=== PATIENT | male | born 1965 | race Caucasian/White ===

== ENCOUNTER 2023-02-14 13:30 | Emergency (ER) | payer MEDICAID ==
[~2023-02-14] VITALS: Ht 172.7 cm; Wt 90.3 kg
[2023-02-14 14:04] VITALS: BP 136/93
--- NOTE | 2023-02-14 14:07 | NUR ---
LOW BACK PAIN (07/27) X 2 DAYS, DENIES FALL, DENIES INJURY. PATIENT WITH UNSTEADY GAIT D/T PAIN. DENIES PMH.
--- NOTE | 2023-02-14 14:08 | NUR ---
TOOK IBUPROFEN 3 HOURS AGO.
[2023-02-14] MEDS ORDERED: KETOROLAC 30 MG/ML VIAL IM ONE (14:35)
--- NOTE | 2023-02-14 14:44 | NUR ---
pt wheelchair assist to xray at this time
--- NOTE | 2023-02-14 15:00 | NUR ---
PATIENT WAS WHEELCHAIR ASSISTED TO BED 12.
[2023-02-14] MEDS ORDERED: CYCL-711 PO (15:42)
[2023-02-14] MEDS ORDERED: NAPR-1704 PO (15:42)
[2023-02-14] MEDS ORDERED: LID5T TP (15:42)
[2023-02-14 16:13] VITALS: BP 145/90
--- NOTE | 2023-02-14 16:15 | NUR ---
Patient discharged with v/s stable. Written and verbal after care instructions BACK PAIN RADICULAR PAIN, DEGENERATIVE DISK DISEASE given and explained. Patient verbalized understanding. Wheel Chair Assisted with steady gait. All questions addressed prior to discharge. Advised to follow up with PMD. PT. STATES FEELING BETTER AFTER MEDICATION. PT. STABLE FOR D/C HOME
== END 2023-02-14 16:15 | disposition home or self-care (01) ==
LOC: MED 13:30
DX: M51.16 Intervertebral disc disorders with radiculopathy, lumbar region (principal); Z79.899 Other long term (current) drug therapy
CPT/HCPCS: 72110; 96372; 99283; J1885; Q0092

== ENCOUNTER 2024-02-08 11:09 | Emergency (ER) | payer MEDICAID, OTHER ==
[~2024-02-08] VITALS: Ht 175.3 cm; Wt 87.1 kg
[~2024-02-08 11:09] MED LIST: CYCL-711 PO; LID5T TP; NAPR-1704 PO
[2024-02-08 11:26] VITALS: BP 137/82; PULSE 79; RESP 18; TEMP 98.5; O2SAT 98
[2024-02-08 12:29] LABS: APPEARANCE,URINE CLEAR (CLEAR); BILIRUBIN,URINE NEGATIVE (NEGATIVE); BLOOD, URINE 1+ (NEGATIVE); COLOR,URINE YELLOW (YELLOW); LEUKOCYTE ESTERASE ,URINE NEGATIVE (NEGATIVE); NITRITE, URINE NEGATIVE (NEGATIVE); PROTEIN,URINE NEGATIVE (NEGATIVE); UGLUCOSE NEGATIVE (NEGATIVE); UROBILINOGEN,URINE 0.2 EU/dL (0.2 - 1)
[2024-02-08 12:41] LABS: BACTERIA,URINE OCCASSIONAL /HPF (None Seen); RBC,URINE 0-5 /HPF (0-5); SQUAMOUS EPITHELIAL CELL,UR 0-3 (FEW) /LPF (0-3 (FEW)); WBC,URINE 0-5 /HPF (0-5)
[2024-02-08] MEDS ORDERED: CIPR500T4 PO (13:16)
[2024-02-08] MEDS ORDERED: METR-435 PO (13:16)
== END 2024-02-08 13:19 | disposition home or self-care (01) ==
LOC: MED 11:09
DX: K57.92 Diverticulitis of intestine, part unspecified, without perforation or abscess without bleeding (principal); Z79.899 Other long term (current) drug therapy
CPT/HCPCS: 81001; 99283